=== PATIENT | male | born 1950 | race Hispanic/Latino ===

== ENCOUNTER → 2018-07-19 | Outpatient (CLI) | payer OTHER | END | disposition home or self-care (01) | LOC: RAH 08:43 | PROVIDERS: ATTEND Internal Medicine | DX: M25.521 Pain in right elbow (principal) | CPT/HCPCS: 73080 ==

== ENCOUNTER → 2021-02-22 | Outpatient (CLI) | payer MEDICARE ==
[~2021-02-22] MED LIST: 0.9%NACL 1000ML 1,000 ML IV SCH; CEFAZOLIN SODIUM 1 GM VIAL IVP ONE
[2021-02-22 11:58] LABS: BASOPHILS % (AUTO) 0.4 % (0.0-5.0); EOSINOPHILS % (AUTO) 1.5 % (0.0-8.0); HEMATOCRIT 42.6 % (42-54); LYMPHOCYTES % (AUTO) 35.8 % (21.0-51.0); MEAN CORPUSCULAR HEMOGLOBIN 30.2 pg (27.0-33.0); MEAN CORPUSCULAR HGB CONC 35.2 g/dL (32.0-36.0); MEAN CORPUSCULAR VOLUME 85.7 fL (79-99); MONOCYTES % (AUTO) 9.9 % (3.0-13.0); NEUTROPHILS % (AUTO) 52.1 % (40.0-77.0); PLATELET COUNT (AUTO) 201 K/uL (130-400); RED BLOOD CELL COUNT(AUTO) 4.97 MIL/uL (4.50-6.20); RED CELL DISTRIBUTION WIDTH 11.9 % (11.0-15.5); WHITE BLOOD COUNT (AUTO) 7.4 K/uL (4.8-10.8)
[2021-02-22 12:07] LABS: CREATININE 0.9 mg/dL (0.5-1.5); POTASSIUM 4.7 mmol/L (3.5-5.1)
== END | disposition home or self-care (01) ==
LOC: DAH 10:00 → EDSTATUS 02-23 09:00
PROVIDERS: ATTEND Surgery
DX: K43.2 Incisional hernia without obstruction or gangrene (principal); Z20.822 Contact with and (suspected) exposure to COVID-19; Z53.8 Procedure and treatment not carried out for other reasons
CPT/HCPCS: 36415; 71045; 80048; 85025; 87635; 93005; A6260; C9803

== ENCOUNTER 2021-04-12 07:21 | Day surgery (SDC) | payer OTHER ==
[2021-04-05 09:13] LABS: BASOPHILS % (AUTO) 0.2 % (0.0-5.0); HEMATOCRIT 43.8 % (42-54); LYMPHOCYTES % (AUTO) 32.4 % (21.0-51.0); MEAN CORPUSCULAR HEMOGLOBIN 29.9 pg (27.0-33.0); MEAN CORPUSCULAR HGB CONC 34.2 g/dL (32.0-36.0); MEAN CORPUSCULAR VOLUME 87.3 fL (79-99); MONOCYTES % (AUTO) 7.4 % (3.0-13.0); NEUTROPHILS % (AUTO) 58.5 % (40.0-77.0); PLATELET COUNT (AUTO) 183 K/uL (130-400); RED BLOOD CELL COUNT(AUTO) 5.02 MIL/uL (4.50-6.20); RED CELL DISTRIBUTION WIDTH 12.4 % (11.0-15.5); WHITE BLOOD COUNT (AUTO) 8.4 K/uL (4.8-10.8)
[2021-04-05 09:15] LABS: CREATININE 0.8 mg/dL (0.5-1.5); POTASSIUM 5.1 mmol/L (3.5-5.1)
[2021-04-05 09:18] LABS: INR 1.01 (0.85-1.15)
[2021-04-09 11:00] VITALS: BP 171/82
[2021-04-12] VITALS (17 sets, daily range): BP systolic 109–165; BP diastolic 69–88
[~2021-04-12] VITALS: Ht 160 cm; Wt 62.6 kg
[~2021-04-12 07:21] MED LIST changes: -0.9%NACL 1000ML 1,000 ML IV SCH; +AMLO-257 PO; +ATOR10TA69 PO; -CEFAZOLIN SODIUM 1 GM VIAL IVP ONE; +LOSA100T58 PO; +TAMS-1 PO
[2021-04-12] MEDS ORDERED: LACTATED RINGERS 1000ML 1,000 ML IV ONE (08:32)
[2021-04-12] MEDS ORDERED: CEFAZOLIN SODIUM 1 GM VIAL ONE (08:32)
[2021-04-12] MEDS ORDERED: MIDAZOLAM HCL 1 MG/ML 2ML VIAL ONE (10:40)
[2021-04-12] MEDS ORDERED: PROPOFOL 10 MG/ML 20ML VIAL IV ONE (10:41)
[2021-04-12] MEDS ORDERED: LIDOCAINE PF 100MG/5ML (2%) SYRINGE 5ML ONE (10:41)
[2021-04-12] MEDS ORDERED: ONDANSETRON 4MG INJ ONE (10:41)
[2021-04-12] MEDS ORDERED: ROCURONIUM 10MG/1ML SYR 10 MG/ML ML ONE (10:42)
[2021-04-12] MEDS ORDERED: GLYCOPYRROLATE 1 MG/5 ML SYRINGE ONE (11:38)
[2021-04-12] MEDS ORDERED: NEOSTIGMINE 5MG/5ML SYR IV ONE (11:38)
[2021-04-12] MEDS ORDERED: MEPERIDINE-PF 25 MG/ML SYG ONE (12:05)
[2021-04-12] MEDS ORDERED: KETOROLAC 30MG VIAL (30MG/ML) ONE (12:20)
== END 2021-04-12 13:40 | disposition home or self-care (01) ==
LOC: DAH 07:21
PROVIDERS: ATTEND Surgery
DX: K43.0 Incisional hernia with obstruction, without gangrene (principal); K42.9 Umbilical hernia without obstruction or gangrene; I10 Essential (primary) hypertension; Z20.822 Contact with and (suspected) exposure to COVID-19; Z79.01 Long term (current) use of anticoagulants
CPT/HCPCS: 36415; 49561; 49568; 49585; 64486; 71045; 80048; 85025; 85610; 87635; 93005; A4215; A4221; A4222; A4223; A4452; A4663; A4930; A6260; A6402; C1781; C9803; J0690; J1885; J2001; J2175; J2250; J2405; J2704; J2710; J3490; J7120